=== PATIENT | female | born 1985 | race Caucasian/White ===

== ENCOUNTER 2017-12-18 11:08 | Emergency (ER) | payer OTHER ==
[~2017-12-18] VITALS: Ht 149.9 cm; Wt 70.3 kg
[2017-12-18 11:41] VITALS: Ht 149.9 cm; Wt 70.3 kg
[2017-12-18 16:09] VITALS: BP 124/79
== END 2017-12-18 16:11 | disposition home or self-care (01) ==
LOC: ED 11:08
DX: N83.201 Unspecified ovarian cyst, right side (principal); M25.50 Pain in unspecified joint; R03.0 Elevated blood-pressure reading, without diagnosis of hypertension; Z98.890 Other specified postprocedural states